=== PATIENT | male | born 1980 | race Caucasian/White ===

== ENCOUNTER 2020-02-06 08:53 | Emergency (ER) | payer SELFPAY ==
[2020-02-06 08:55] VITALS: BP 141/85; PULSE 72; RESP 18; TEMP 36.2; O2SAT 100
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
== END 2020-02-06 09:30 | disposition home or self-care (01) ==
PROVIDERS: Emergency Provider Emergency Medicine
DX: S01.111D Laceration without foreign body of right eyelid and periocular area, subsequent encounter (principal); V00.141D Fall from scooter (nonmotorized), subsequent encounter
CPT/HCPCS: 99281

== ENCOUNTER 2020-02-11 09:08 | Emergency (ER) | payer OTHER, SELFPAY ==
[2020-02-11 09:18] VITALS: BP 152/98; PULSE 62; RESP 14; TEMP 36.8; O2SAT 100
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
[2020-02-11 09:32] VITALS: BP 120/88
== END 2020-02-11 09:43 | disposition home or self-care (01) ==
PROVIDERS: Emergency Provider Registered Nurse
DX: Z48.00 Encounter for change or removal of nonsurgical wound dressing (principal)
CPT/HCPCS: 99211; G0463

== ENCOUNTER 2022-10-27 15:00 | Emergency (ER) | payer OTHER, SELFPAY ==
[2022-10-27 15:05] VITALS: BP 154/85; PULSE 94; RESP 16; TEMP 36; O2SAT 99
--- NOTE | 2022-10-27 15:09 | ED.EAR ---
HPI - Ear Problem General Chief complaint: Ear Stated complaint: Right Ear Pain Source: patient and RN notes reviewed History of Present Illness HPI Narrative: 42-year-old male presents to urgent care with complaints of right ear pain x2 days. Patient states he did go swimming recently and admits to getting water in his ear at that time. Patient reports slight congestion. Denies any fevers, chills, sore throat, vomiting. Related Data Allergies Allergy/AdvReac Type Severity Reaction Status Date / Time No Known Allergies Allergy Verified 02/11/20 09:12 Review of Systems Review of Systems: CONSTITUTIONAL: Denies fever, chills, or sweats. EYES: Denies visual changes, redness, or discharge. ENT: Right ear pain CARDIOVASCULAR: Denies chest pain, palpitations, or edema. RESPIRATORY: Denies cough or dyspnea. GASTROINTESTINAL: Denies abdominal pain, nausea, vomiting, or diarrhea. GENITOURINARY: Denies dysuria or hematuria. SKIN: Denies rash or itching. MUSCULOSKELETAL: Denies back pain, joint pain, or myalgia. NEUROLOGIC: Denies headache, numbness, or weakness. Pertinent positives per HPI. [facility] Past Medical History Medical History (Updated 10/27/22 @ 15:10 by Diana Doherty, JONATHON) Healthy adult Surgical History Surgical History (Updated 02/11/20 @ 09:27 by Yeimi Cain NP) Hx of tonsillectomy Social History Social History (Updated 02/11/20 @ 10:21 by Yeimi Cain NP) Smoking status: Never smoker Alcohol intake: current Substance use: never Living arrangements: with family Gender identity (if verbalized by the patient): Male Comments At the time of my signature, I reviewed and agree with the nursing past medical, surgical, social, and family history. There is no relevant family history pertinent to the patient complaint. Exam Narrative: GENERAL: This is a well-nourished, well-developed patient, in no apparent distress. HEAD: normocephalic, atraumatic. EYES: Sclera clear/white. Vision is grossly intact. EARS: Right ear canal edematous and erythemic. Canal remains patent. No drainage noted. TM erythemic. NOSE: External nose normal with no obvious nasal discharge, nares without redness, no rhinorrhea. THROAT: Mucous membranes moist, posterior pharynx clear. NECK: Neck supple, non-tender without lymphadenopathy, masses or thyromegaly. CARDIOVASCULAR: Regular rate RESPIRATORY: No respiratory distress SKIN: warm, intact with no suspicious lesions or rash, good texture and turgor. NEURO: awake, alert, and oriented to person, place and time. There were no obvious focal neurologic abnormalities. Course Course Level of Care: Express Care Visit Vital Signs Vital signs: Vital Signs Temperature 96.8 F L 10/27/22 15:05 Pulse Rate 94 10/27/22 15:05 Respiratory Rate 16 10/27/22 15:05 Blood Pressure 154/85 H 10/27/22 15:05 Pulse Oximetry 99 10/27/22 15:05 Oxygen Delivery Room Air 10/27/22 15:05 Temperature 96.8 F L 10/27/22 15:05 Pulse Rate 94 10/27/22 15:05 Respiratory Rate 16 10/27/22 15:05 Blood Pressure 154/85 H 10/27/22 15:05 Pulse Oximetry 99 10/27/22 15:05 Oxygen Delivery Room Air 10/27/22 15:05 Reviewed Medical Decision Making MDM Narrative Medical decision making narrative: Take antibiotics as directed. May given ibuprofen and/or Tylenol as needed for pain and/or fever. Follow up with primary care provider in 7-10 days to have ear rechecked. Differential Diagnosis Differential Diagnosis: Otitis externa, otitis media, cerumen impaction Vital Signs Vital Signs: Vital Signs Temperature 96.8 F L 10/27/22 15:05 Pulse Rate 94 10/27/22 15:05 Respiratory Rate 16 10/27/22 15:05 Blood Pressure 154/85 H 10/27/22 15:05 Pulse Oximetry 99 10/27/22 15:05 Oxygen Delivery Room Air 10/27/22 15:05 Temperature 96.8 F L 10/27/22 15:05 Pulse Rate 94 10/27/22 15:05 Respiratory Rate 16 10/27/22 15:0
== END 2022-10-27 15:14 | disposition home or self-care (01) ==
PROVIDERS: Emergency Provider Nurse Practitioner Family
DX: H60.501 Unspecified acute noninfective otitis externa, right ear (principal)
CPT/HCPCS: 99213; G0463